=== PATIENT | male | born 1945 | race Caucasian/White ===

== ENCOUNTER 2017-04-05 18:02 | Emergency (ER) | payer MEDICARE ==
[2017-04-05 18:10] VITALS: BP 116/84
--- NOTE | 2017-04-05 19:23 | RAD ---
INDICATION: Ankle pain after a fall COMPARISON: None. TECHNIQUE: 3 views of the left ankle were obtained. FINDINGS: The well corticated bones exhibit normal alignment. Joint spaces appear maintained. No fracture is seen. IMPRESSION: Normal ankle radiograph. If the patient's symptoms persist, follow-up imaging is recommended.
--- NOTE | 2017-04-05 20:15 | UC ---
Vania Guillen Edward, scribed for Samuel Sultana MD on 04/05/17 at 1821 . Lower Extremity/Ankle HPI - HPI Summary HPI Summary: 72 y/o male presents to [facility] c/o L foot pain starting at around 17:00 today. The patient was asleep in a chair when his L foot and leg fell asleep. When the patient tried to stand up after waking up the patient twisted his L ankle. The pain is rated at a 3/10 in severity with weight bearing. Associated sx: L ankle edema. SHx artifical heart valve, pacemakers. PMHx cardiac disorders, HTN. - History of Current Complaint Chief Complaint: UCLowerExtremity Stated Complaint: ANKLE INJURY Time Seen by Provider: 04/05/17 18:16 Hx Obtained From: Patient Severity Initially: Mild Severity Currently: Mild Pain Intensity: 3 Pain Scale Used: 0-10 Numeric Aggravating Factor(s): Standing Able to Bear Weight: Yes - Allergies/Home Medications Allergies/Adverse Reactions: Allergies Allergy/AdvReac Type Severity Reaction Status Date / Time No Known Allergies Allergy Verified 09/18/14 14:16 PMH/Surg Hx/FS Hx/Imm Hx Previously Healthy: No Cardiovascular History: Cardiac Disease, Hypertension - Surgical History Surgical History: Yes Surgery Procedure, Year, and Place: Artificial heart valve, pacemaker - Family History Known Family History: Positive: Other - Father - prostate cancer, Mother - lung cancer, COPD - Social History Occupation: Retired Lives: Alone Alcohol Use: None Substance Use Type: None Smoking Status (MU): Never Smoked Tobacco Review of Systems Constitutional: Negative Skin: Negative Eyes: Negative ENT: Negative Respiratory: Negative Cardiovascular: Negative Gastrointestinal: Negative Genitourinary: Negative Motor: Negative Neurovascular: Negative Musculoskeletal: Arthralgia - L ankle pain, Edema - @ L ankle Neurological: Negative Psychological: Negative All Other Systems Reviewed And Are Negative: Yes Physical Exam Triage Information Reviewed: Yes Appearance: Well-Appearing, No Pain Distress Vital Signs: Initial Vital Signs Temp 97.9 F 04/05/17 18:06 Pulse 71 04/05/17 18:06 Resp 18 04/05/17 18:06 BP 116/84 04/05/17 18:06 Pulse Ox 96 04/05/17 18:06 Vital Signs Reviewed: Yes Eyes: Positive: Conjunctiva Clear ENT: Positive: Normal ENT inspection Neck: Positive: Supple, Nontender Respiratory: Positive: Lungs clear, Normal breath sounds, No respiratory distress Cardiovascular: Positive: RRR Abdomen Description: Positive: Nontender Bowel Sounds: Positive: Present Musculoskeletal: Positive: Strength Intact, ROM Intact, Edema @ - Pain and swelling distal to L malleolus - pain w/ ROM Neurological Exam: Normal Neurological: Positive: Alert Psychological Exam: Normal Psychological: Positive: Age Appropriate Behavior Skin Exam: Normal Diagnostics - Radiology Ankle X-Ray Xray Interpretation: No Acute Changes - Normal ankle radiograph Radiology Interpretation Completed By: Radiologist Lower Extremity Course/Dx - Course Course Of Treatment: MEDICATIONS REVIEWED UPON VISIT. DISCUSSED X-RAY RESULTS AND ANKLE SPRAIN CARE WITH PATIENT/. - Differential Dx/Diagnosis Provider Diagnoses: LEFT ANKLE SPRAIN Discharge - Discharge Plan Condition: Stable Disposition: HOME Patient Education Materials: Ankle Sprain (ED) Referrals: Ken Saunders MD [Primary Care Provider] - Additional Instructions: FOLLOW UP WITH YOUR DOCTOR. GET RECHECKED FOR ANY WORSENING OF YOUR CONDITION OR QUESTIONS OR CONCERNS. The documentation as recorded by the Vania dawson Edward accurately reflects the service I personally performed and the decisions made by Rd almodovar William, MD.
== END 2017-04-05 19:42 | disposition home or self-care (01) ==
LOC: UCEAST 18:02
DX: S93.402A Sprain of unspecified ligament of left ankle, initial encounter (principal); X50.0XXA Overexertion from strenuous movement or load, initial encounter; X50.9XXA Other and unspecified overexertion or strenuous movements or postures, initial encounter; Y93.17 Activity, water skiing and wake boarding; Y92.9 Unspecified place or not applicable; Y99.9 Unspecified external cause status; I10 Essential (primary) hypertension; Z95.0 Presence of cardiac pacemaker; I51.9 Heart disease, unspecified; Z95.2 Presence of prosthetic heart valve
CPT/HCPCS: 99212; G0463

== ENCOUNTER 2018-08-19 21:53 | Emergency (ER) | payer OTHER ==
[2018-08-19 22:01] VITALS: BP 127/61
--- NOTE | 2018-08-19 22:11 | UC ---
Lower Extremity/Ankle HPI - HPI Summary HPI Summary: 73-year-old male comes in with a chief complaint of right foot and ankle pain. This started today after he was moving would. The worst pain is in the midfoot. Is also some pain in the lateral aspect of the ankle. It's worse when he bears weight and moves the foot. It's better when he rests the foot and does not bear weight. There is no known specific injury the pain gradually worsened during the course of activity. - History of Current Complaint Chief Complaint: UCLowerExtremity Stated Complaint: FOOT INJURY Time Seen by Provider: 08/19/18 22:05 Pain Intensity: 6 - Allergies/Home Medications Allergies/Adverse Reactions: Allergies Allergy/AdvReac Type Severity Reaction Status Date / Time No Known Allergies Allergy Verified 08/19/18 22:02 Home Medications: Home Medications Digoxin TAB* [Lanoxin TAB*] 1 tab PO DAILY 08/19/18 [History Confirmed 08/19/18] PMH/Surg Hx/FS Hx/Imm Hx Cardiovascular History: Pacemaker/ICD, Atrial Fibrillation - Surgical History Surgical History: Yes Surgery Procedure, Year, and Place: Artificial heart valve, pacemaker - Family History Known Family History: Positive: Other - Father - prostate cancer, Mother - lung cancer, COPD - Social History Alcohol Use: None Substance Use Type: None Smoking Status (MU): Never Smoked Tobacco Review of Systems All Other Systems Reviewed And Are Negative: Yes Constitutional: Positive: Negative Skin: Positive: Negative Eyes: Positive: Negative ENT: Positive: Negative Respiratory: Positive: Negative Cardiovascular: Positive: Negative Gastrointestinal: Positive: Negative Motor: Positive: Negative Neurovascular: Positive: Negative Musculoskeletal: Positive: Other: - SEE HPI Neurological: Positive: Negative Psychological: Positive: Negative Is Patient Immunocompromised?: No Physical Exam Triage Information Reviewed: Yes Appearance: Well-Appearing, Well-Nourished, Pain Distress - MILD WITH RT FOOT PALPATION AND ROM Vital Signs: Initial Vital Signs Temp 98.8 F 08/19/18 21:59 Pulse 68 08/19/18 21:59 Resp 16 08/19/18 21:59 BP 127/61 08/19/18 21:59 Pulse Ox 99 08/19/18 21:59 Vital Signs Reviewed: Yes Eye Exam: Normal Eyes: Positive: Conjunctiva Clear Neck exam: Normal Neck: Positive: Supple Respiratory: Positive: No respiratory distress Musculoskeletal: Positive: Other: - Patient is tender to palpation in the plantar aspect of the right foot. Is also tender to palpation over the lateral distal malleolus of the right ankle Neurological: Positive: Alert, Muscle Tone Normal Psychological Exam: Normal Psychological: Positive: Normal Response To Family, Age Appropriate Behavior Skin Exam: Normal Lower Extremity Course/Dx - Course Course Of Treatment: I discussed the x-rays with the patient and his family. I do not see any fracture on the x-rays. Radiologist reading is pending. Believe the patient has accommodation of foot ankle sprain with plantar fascitis. In clinic given a postop shoe. He has crutches at home. He is on Coumadin therefore he cannot take any NSAIDs. He can ice it elevated try to rest it. Follow-up with primary care doctor. Ensure he is arch supports and all issues. He declined an Julio wrap as he tried one earlier and it hurt. - Differential Dx/Diagnosis Provider Diagnosis: Right foot sprain, Right ankle sprain Discharge - Sign-Out/Discharge Documenting (check all that apply): Patient Departure All imaging exams completed and their final reports reviewed: No - Discharge Plan Condition: Stable Disposition: HOME Patient Education Materials: Foot Sprain (ED), Ankle Sprain (ED), Plantar Fasciitis (ED), Plantar Fasciitis Exercises (ED) Referrals: Ken Saunders MD [Primary Care Provider] - Additional Instructions: FOLLOW UP WITH YOUR DOCTOR IF NOT COMPLETELY IMPROVED. GET RECHECKED FOR ANY WORSENING OF YOUR CONDITION OR QUESTIONS OR CONCERNS. - Billing Disposition and Condition Condition: STABLE Disposition: Home
--- NOTE | 2018-08-20 13:54 | UC ---
- Progress Note Progress Note: XRAY REPORTS REVIEWED: 1. MILD OSTEOARTHRITIS. 2. HEEL SPURS. 3. JOINT EFFUSION OF THE ANKLE. 4. NO ACUTE OSSEOUS INJURY TO THE RIGHT FOOT OR RIGHT ANKLE. IF SYMPTOMS PERSIST , RECOMMEND REPEAT IMAGING NO CHANGE IN MGMT. Course/Dx - Diagnoses Provider Diagnoses: Right foot sprain, Right ankle sprain Discharge - Sign-Out/Discharge Documenting (check all that apply): Post-Discharge Follow Up All imaging exams completed and their final reports reviewed: Yes - Discharge Plan Condition: Stable Disposition: HOME Patient Education Materials: Ankle Sprain (ED), Plantar Fasciitis (ED), Foot Sprain (ED), Plantar Fasciitis Exercises (ED) Referrals: Ken Saunders MD [Primary Care Provider] - Additional Instructions: FOLLOW UP WITH YOUR DOCTOR IF NOT COMPLETELY IMPROVED. GET RECHECKED FOR ANY WORSENING OF YOUR CONDITION OR QUESTIONS OR CONCERNS. - Billing Disposition and Condition Condition: STABLE Disposition: Home
== END 2018-08-19 22:35 | disposition home or self-care (01) ==
LOC: UCEAST 21:53
DX: S93.601A Unspecified sprain of right foot, initial encounter (principal); S93.401A Sprain of unspecified ligament of right ankle, initial encounter; X50.0XXA Overexertion from strenuous movement or load, initial encounter; Y93.89 Activity, other specified; Y92.9 Unspecified place or not applicable; I48.91 Unspecified atrial fibrillation; Z95.9 Presence of cardiac and vascular implant and graft, unspecified
CPT/HCPCS: 99212; G0463